=== PATIENT | female | born 1955 | race Hispanic/Latino ===

== ENCOUNTER 2020-09-15 01:19 | Emergency (ER) | payer SELFPAY ==
--- NOTE | 2020-09-15 03:51 | XRay Report ---
CHEST 1 VIEW INDICATION: Chest Pain. COMPARISON: None FINDINGS: SUPPORT DEVICES: None. HEART: Within normal limits. LUNGS/PLEURA: No acute air space or interstitial disease. ADDITIONAL FINDINGS: None. IMPRESSION: 1. No acute findings. Signer Name: Christiano Fontana MD Signed: 09/15/2020 3:47 AM Workstation Name: [id number]
[2020-09-15 04:49] LABS: Basophils # (Auto) 0.1 K/mm3 (0.0-0.1); Basophils % (Auto) 0.9 % (0.0-1.8); Eosinophils # (Auto) 0.4 K/mm3 (0.0-0.4); Eosinophils % (Auto) 5.8 % (0.0-4.3); Hematocrit 38.9 % (30.3-42.9); Hemoglobin 13.1 gm/dl (10.1-14.3); Lymphocytes # (Auto) 2.7 K/mm3 (1.2-5.4); Lymphocytes % (Auto) 41.5 % (13.4-35.0); Mean Corpuscular HGB Conc 34 % (30-34); Mean Corpuscular Volume 89 fl (79-97); Monocytes # (Auto) 0.5 K/mm3 (0.0-0.8); Platelet Count 220 K/mm3 (140-440); Red Blood Count 4.37 M/mm3 (3.65-5.03); Red Cell Distribution Width 13.7 % (13.2-15.2)
[2020-09-15 05:09] LABS: BUN/Creatinine Ratio 24; Blood Urea Nitrogen 24 mg/dL (7-17); Calcium 9.4 mg/dL (8.4-10.2); Hemolysis Index 11
== END 2020-09-15 06:30 | disposition left against medical advice (07) ==
LOC: ED 01:19
DX: R07.89 Other chest pain (principal); Z53.21 Procedure and treatment not carried out due to patient leaving prior to being seen by health care provider
CPT/HCPCS: 36415; 71045; 80048; 84484; 85025; 93005

== ENCOUNTER 2021-08-15 01:58 | Emergency (ER) | payer SELFPAY ==
[2021-08-15 02:21] VITALS: BP 148/91
[2021-08-15] MEDS ORDERED: ASPIRIN 325 MG TAB PO ONE (02:25)
--- NOTE | 2021-08-15 03:00 | XRay Report ---
XR chest routine 2V INDICATION / CLINICAL INFORMATION: CHESTPAIN. COMPARISON: 09/15/2020 FINDINGS: SUPPORT DEVICES: None. HEART /PULMONARY VASCULATURE: No significant abnormality. LUNGS / PLEURA: No significant pulmonary or pleural abnormality. No pneumothorax. ADDITIONAL FINDINGS: No significant additional findings. IMPRESSION: 1. No acute findings. Signer Name: Leroy Blackwell MD Signed: 08/15/2021 2:55 AM Workstation Name: [id number]
[2021-08-15 03:34] LABS: Alanine Aminotransferase 22 units/L (7-56); Albumin 4.3 g/dL (3.9-5); BUN/Creatinine Ratio 21; Blood Urea Nitrogen 21 mg/dL (7-17); Calcium 9.4 mg/dL (8.4-10.2); Hemolysis Index 3
[2021-08-15 03:49] LABS: Basophils # (Auto) 0.1 K/mm3 (0.0-0.1); Basophils % (Auto) 1.2 % (0.0-1.8); Eosinophils # (Auto) 0.4 K/mm3 (0.0-0.4); Eosinophils % (Auto) 6.9 % (0.0-4.3); Hematocrit 38.7 % (30.3-42.9); Hemoglobin 12.6 gm/dl (10.1-14.3); Lymphocytes # (Auto) 2.3 K/mm3 (1.2-5.4); Mean Corpuscular HGB Conc 33 % (30-34); Mean Corpuscular Volume 91 fl (79-97); Monocytes # (Auto) 0.5 K/mm3 (0.0-0.8); Monocytes % (Auto) 7.4 % (0.0-7.3); Platelet Count 196 K/mm3 (140-440); Red Blood Count 4.28 M/mm3 (3.65-5.03); Red Cell Distribution Width 13.2 % (13.2-15.2)
--- NOTE | 2021-08-15 04:00 | Emergency Department Report ---
ED Extremity Problem HPI - General Chief complaint: Chest Pain Stated complaint: LEFT ARM PAIN Time Seen by Provider: 08/15/21 02:56 Source: patient Mode of arrival: Ambulatory Limitations: No Limitations - History of Present Illness Initial comments: Patient is 66-year-old female with past medical history of hypertension and arthritis who is presenting with left arm pain. She states she has pain in the left shoulder and left arm. Is worse with movement better with rest. She got concerned this evening because for the last several hours when she moves she feels pulling sensation in her left side of her chest. Patient has no shortness of breath no exertional component to the pain. No pleurisy. Denies cough cold congestion fevers chills nausea vomiting or diarrhea. - Related Data Previous Rx's Medication Instructions Recorded Last Taken Type methOCARBAMOL [Robaxin TAB] 500 mg PO Q6H PRN #14 tablet 08/15/21 Unknown Rx Allergies Allergy/AdvReac Type Severity Reaction Status Date / Time No Known Allergies Allergy Verified 08/15/21 02:57 ED Review of Systems ROS: Stated complaint: LEFT ARM PAIN Other details as noted in HPI Comment: All other systems reviewed and negative ED Past Medical Hx - Past Medical History Previous Medical History?: Yes Hx Hypertension: Yes Additional medical history: High Cholesterol, Heart Aneurysm - Surgical History Past Surgical History?: Yes Hx Cholecystectomy: Yes Additional Surgical History: Hysterectomy - Social History Smoking Status: Never Smoker Substance Use Type: None - Medications Home Medications: Home Medications Medication Instructions Recorded Confirmed Last Taken Type methOCARBAMOL [Robaxin TAB] 500 mg PO Q6H PRN #14 tablet 08/15/21 Unknown Rx ED Physical Exam - General Limitations: No Limitations General appearance: alert, in no apparent distress - Head Head exam: Present: atraumatic, normocephalic - Eye Eye exam: Present: normal appearance, PERRL, EOMI - ENT ENT exam: Present: mucous membranes moist - Neck Neck exam: Present: normal inspection - Respiratory Respiratory exam: Present: normal lung sounds bilaterally. Absent: respiratory distress, wheezes, rales, rhonchi, stridor - Cardiovascular Cardiovascular Exam: Present: regular rate, normal rhythm. Absent: systolic murmur, diastolic murmur, rubs, gallop - GI/Abdominal GI/Abdominal exam: Present: soft, normal bowel sounds. Absent: distended, tenderness, guarding, rebound - Extremities Exam Extremities exam: Present: normal inspection - Back Exam Back exam: Present: normal inspection - Neurological Exam Neurological exam: Present: alert, oriented X3 - Psychiatric Psychiatric exam: Present: normal affect, normal mood - Skin Skin exam: Present: warm, dry, intact, normal color. Absent: rash ED Course Vital Signs 08/15/21 02:09 Temperature 98.0 F Pulse Rate 59 L Respiratory 16 Rate Blood Pressure 148/91 O2 Sat by Pulse 97 Oximetry ED Medical Decision Making - Lab Data Result diagrams: 08/15/21 02:50 08/15/21 02:50 Lab Results 08/15/21 08/15/21 Range/Units 02:50 02:50 WBC 6.2 (4.5-11.0) K/mm3 RBC 4.28 (3.65-5.03) M/mm3 Hgb 12.6 (10.1-14.3) gm/dl Hct 38.7 (30.3-42.9) % MCV 91 (79-97) fl MCH 29 (28-32) pg MCHC 33 (30-34) % RDW 13.2 (13.2-15.2) % Plt Count 196 (140-440) K/mm3 Lymph % (Auto) 37.0 H (13.4-35.0) % Slope % (Auto) 7.4 H (0.0-7.3) % Eos % (Auto) 6.9 H (0.0-4.3) % Baso % (Auto) 1.2 (0.0-1.8) % Lymph # (Auto) 2.3 (1.2-5.4) K/mm3 Slope # (Auto) 0.5 (0.0-0.8) K/mm3 Eos # (Auto) 0.4 (0.0-0.4) K/mm3 Baso # (Auto) 0.1 (0.0-0.1) K/mm3 Seg Neutrophils % 47.5 (40.0-70.0) % Seg Neutrophils # 2.9 (1.8-7.7) K/mm3 Sodium 144 (137-145) mmol/L Potassium 3.7 (3.6-5.0) mmol/L Chloride 105.6 (98-107) mmol/L Carbon Dioxide 25 (22-30) mmol/L Anion Gap 17 mmol/L BUN 21 H (7-17) mg/dL Creatinine 1.0 (0.6-1.2) mg/dL Estimated GFR 56 ml/min BUN/Creatinine Ratio 21 % Glucose 110 H (65-100) mg/dL Calcium 9.4 (8.4-10.2) mg/dL Total Bilirubin 0.60 (0.1-1.2) mg/dL AST 28 (5-40) units/L ALT 22 (7-56) units/L Alkaline Phosphatase 48 (35-129) units/L Troponin T < 0.010 (0.00-0.029) ng/mL Total Protein 6.4 (6.3-8.2) g/dL Albumin 4.3 (3.9-5) g/dL Albumin/Globulin Ratio 2.0 % - EKG Data -: EKG Interpreted by [facility] EKG shows normal: sinus rhythm, axis, intervals, QRS complexes, ST-T waves Rate: normal - Radiology Data XR chest routine 2V INDICATION / CLINICAL INFORMATION: CHESTPAIN. COMPARISON: 09/15/2020 FINDINGS: SUPPORT DEVICES: None. HEART /PULMONARY VASCULATURE: No significant abnormality. LUNGS / PLEURA: No significant pulmonary or pleural abnormality. No pneumothorax. ADDITIONAL FINDINGS: No significant additional findings. IMPRESSION: 1. No acute findings. Signer Name: Leroy Blackwell MD Signed: 08/15/2021 2:55 AM Workstation Name: [id number] - Medical Decision Making Patient's pain likely musculoskeletal. Patient be discharged home with medication for symptomatic relief. Critical care attestation.: If time is entered above; I have spent that time in minutes in the direct care of this critically ill patient, excluding procedure time. ED Disposition Clinical Impression: Arthralgia, Chest pain, atypical Disposition: 01 HOME / SELF CARE / HOMELESS Is pt being admited?: No Does the pt Need Aspirin: No Condition: Stable Instructions: Nonspecific Chest Pain, Adult, Musculoskeletal Pain Additional Instructions: Please follow-up with your primary care physician as needed Time of Disposition: 03:59
--- NOTE | 2021-08-15 13:27 | Electrocardiograph Report ---
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
== END 2021-08-15 04:40 | disposition home or self-care (01) ==
LOC: ED 01:58
DX: R07.89 Other chest pain (principal); M25.512 Pain in left shoulder; I10 Essential (primary) hypertension; E78.5 Hyperlipidemia, unspecified
CPT/HCPCS: 36415; 71046; 80053; 84484; 85025; 93005; 99284

== ENCOUNTER 2021-11-09 04:18 | Emergency (ER) | payer SELFPAY ==
[2021-11-09] MEDS ORDERED: NITROGLYCERIN 0.4 MG TAB SUBL SL ONE (05:02)
[2021-11-09] MEDS ORDERED: SODIUM CHLORIDE 0.9% 1000 ML 1,000 ML IV ONE (05:02)
[2021-11-09] MEDS ORDERED: ASPIRIN 81 MG TAB CHEW PO ONE (05:02)
--- NOTE | 2021-11-09 05:11 | Emergency Department Report ---
ED General Adult HPI - General Chief complaint: Chest Pain Stated complaint: CHEST PAIN Time Seen by Provider: 11/09/21 05:02 Source: patient Mode of arrival: Ambulatory Limitations: Physical Limitation - History of Present Illness Initial comments: Patient presents secondary to chest discomfort. She states that she was awoken at about 2 or 2:30 AM from sleep. She noticed some funny feeling in her chest described as pain. She states it is an aching pain. She also noticed a funny feeling in her left neck and states that her left arm was getting numb. She knew that something was not right. She tried to lie down to go back to sleep, but she was too upset about having this discomfort. She was too worried about what this might be. Because of that, she came here for evaluation. She states that her symptoms are not specifically pleuritic. They are not exertional. They are not positional. She is never had symptoms like this before. She was told that she has "an aneurysm on her heart." She states that she was told that she should always get checked out. She has never had a heart attack. - Related Data Previous Rx's Medication Instructions Recorded Last Taken Type methOCARBAMOL [Robaxin TAB] 500 mg PO Q6H PRN #14 tablet 08/15/21 Unknown Rx Allergies Allergy/AdvReac Type Severity Reaction Status Date / Time No Known Allergies Allergy Verified 08/15/21 02:57 ED Review of Systems ROS: Stated complaint: CHEST PAIN Other details as noted in HPI Comment: All other systems reviewed and negative Constitutional: denies: fever Eyes: denies: vision change ENT: denies: throat pain Respiratory: denies: cough Cardiovascular: as per HPI, chest pain Endocrine: denies: unexplained weight loss Gastrointestinal: denies: vomiting Genitourinary: denies: dysuria Musculoskeletal: denies: back pain Skin: denies: rash Neurological: denies: headache Hematological/Lymphatic: denies: easy bruising ED Past Medical Hx - Past Medical History Hx Hypertension: Yes Additional medical history: High Cholesterol, Heart Aneurysm - Surgical History Hx Cholecystectomy: Yes Additional Surgical History: Hysterectomy - Family History Family history: hypertension - Social History Smoking Status: Never Smoker - Medications Home Medications: Home Medications Medication Instructions Recorded Confirmed Last Taken Type methOCARBAMOL [Robaxin TAB] 500 mg PO Q6H PRN #14 tablet 08/15/21 Unknown Rx ED Physical Exam - General Limitations: No Limitations, Other (Pulse ox noted and normal) General appearance: alert, in no apparent distress - Head Head exam: Present: atraumatic, normocephalic - Eye Eye exam: Present: normal appearance, PERRL, EOMI - ENT ENT exam: Present: normal orophraynx, normal external ear exam - Neck Neck exam: Present: normal inspection. Absent: tenderness, meningismus - Respiratory Respiratory exam: Present: normal lung sounds bilaterally. Absent: respiratory distress - Cardiovascular Cardiovascular Exam: Present: regular rate, normal rhythm - GI/Abdominal GI/Abdominal exam: Present: soft. Absent: distended - Extremities Exam Extremities exam: Present: normal capillary refill. Absent: pedal edema, calf tenderness - Back Exam Back exam: Absent: CVA tenderness (R), CVA tenderness (L) - Neurological Exam Neurological exam: Present: alert, oriented X3, CN II-XII intact, normal gait. Absent: motor sensory deficit - Psychiatric Psychiatric exam: Present: normal affect, normal mood - Skin Skin exam: Present: warm, dry ED Course Vital Signs 11/09/21 11/09/21 11/09/21 04:30 05:44 05:45 Temperature 98.4 F Pulse Rate 69 62 Respiratory 20 16 Rate Blood Pressure 152/96 Blood Pressure 163/82 [Right] O2 Sat by Pulse 98 98 98 Oximetry - Reevaluation(s) Reevaluation #1: 11/09/21 05:19 EKG was noted. IV labs were ordered. Old records reviewed. Reevaluation #2: 11/09/21 05:57 Labs are noted. Heart score is 4. Based on her presentation, I believe a second troponin would be appropriate. At the second troponin is negative, patient will be discharged. Timed troponin orders have been entered. Care was signed out to the next provider. ED Medical Decision Making - Lab Data Result diagrams: 11/09/21 05:10 11/09/21 05:10 Onset: Normal sinus rhythm without ectopy per monitor observe 10 seconds. - EKG Data -: EKG Interpreted by Me - EKG Data 11/09/21 05:19 0453-EKG shows normal sinus rhythm at 66. Intervals are normal including a QRS of 89 and a QT corrected of 4 0 44. Patient has no ST elevation to suggest infarct. There is no ST depression suggestive of ischemia. Patient has T wave inversion in V1 and V2. There is T wave flattening in lead III. There is no change when compared to an EKG from August 16.. 11/09/21 05:20 - Radiology Data Radiology results: report reviewed - Medical Decision Making Patient presents with chest pain that does not seem to be cardiac in nature. However it has been relatively short duration. Her heart score is 4. We will obtain a second troponin at 3 hours. If this is normal, I do believe that the patient could be discharged home safely. There was no radiographic evidence of pneumonia or pneumothorax. She does not have a wide mediastinum suggestive of aortic dissection. She does not have risk factor for PE. Critical Care Time: No Critical care attestation.: If time is entered above; I have spent that time in minutes in the direct care of this critically ill patient, excluding procedure time. ED Disposition Clinical Impression: Substernal chest pain Disposition: 30 STILL A PATIENT Is pt being admited?: No Condition: Stable Instructions: Nonspecific Chest Pain, Adult Additional Instructions: Drink plenty water. Return for problems. Follow-up with your regular doctor for recheck and further management. Follow-up with cardiology as referred if you need a clinic business manager. Referrals: PRIMARY CARE, [Referring] - 3-5 Days MELODY DEL VALLE MD [Staff Physician] - 3-5 Days NA ESCALANTE MD [Staff Physician] - 3-5 Days
[2021-11-09 05:30] LABS: Basophils % (Auto) 0.4 % (0.0-1.8); Eosinophils # (Auto) 0.4 K/mm3 (0.0-0.4); Eosinophils % (Auto) 3.1 % (0.0-4.3); Hematocrit 38.9 % (30.3-42.9); Hemoglobin 12.7 gm/dl (10.1-14.3); Lymphocytes # (Auto) 1.6 K/mm3 (1.2-5.4); Lymphocytes % (Auto) 14.1 % (13.4-35.0); Mean Corpuscular HGB Conc 33 % (30-34); Mean Corpuscular Volume 90 fl (79-97); Monocytes # (Auto) 0.7 K/mm3 (0.0-0.8); Platelet Count 211 K/mm3 (140-440); Red Blood Count 4.31 M/mm3 (3.65-5.03); Red Cell Distribution Width 13.7 % (13.2-15.2)
[2021-11-09 05:43] LABS: BUN/Creatinine Ratio 25; Blood Urea Nitrogen 25 mg/dL (7-17); Hemolysis Index 5
--- NOTE | 2021-11-09 05:50 | XRay Report ---
CHEST 1 VIEW INDICATION / CLINICAL INFORMATION: cp sinc 2:00am. COMPARISON: None available. FINDINGS: SUPPORT DEVICES: None. HEART / MEDIASTINUM: No significant abnormality. LUNGS / PLEURA: No significant pulmonary or pleural abnormality. No pneumothorax. ADDITIONAL FINDINGS: No significant additional findings. IMPRESSION: 1. No active cardiopulmonary disease. Signer Name: Azael Hills II, MD Signed: 11/09/2021 5:45 AM Workstation Name: [id number]
[2021-11-09 09:19] VITALS: BP 128/78
--- NOTE | 2021-11-10 13:18 | Electrocardiograph Report ---
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
--- NOTE | 2021-11-10 13:25 | Electrocardiograph Report ---
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
== END 2021-11-09 09:20 | disposition still patient (30) ==
LOC: ED 04:18
DX: R07.89 Other chest pain (principal); I10 Essential (primary) hypertension
CPT/HCPCS: 36415; 71045; 80048; 84484; 85025; 93005; 93010; 96360; 99284; J7030; Q0162

== ENCOUNTER 2021-12-13 15:08 | Emergency (ER) | payer SELFPAY ==
[2021-12-13] MEDS ORDERED: ACETAMINOPHEN 500 MG TAB PO ONE (16:17)
[2021-12-13] MEDS ORDERED: IBUPROFEN 800 MG TAB ONE (18:56)
[2021-12-13] MEDS ORDERED: ACETAMINOPHEN 500 MG TAB ONE (18:59)
--- NOTE | 2021-12-13 19:07 | XRay Report ---
Right elbow 3 views INDICATION: Right elbow pain following fall IMPRESSION: Mild degenerative changes of the elbow are present without significant elbow effusion. No fracture is identified. Signer Name: Carlos Juarez MD Signed: 12/13/2021 7:02 PM Workstation Name: [id number]
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
[2021-12-13 19:54] VITALS: BP 178/94
== END 2021-12-13 19:58 | disposition home or self-care (01) ==
LOC: ED 15:08
DX: S53.491A Other sprain of right elbow, initial encounter (principal); S00.83XA Contusion of other part of head, initial encounter; S00.03XA Contusion of scalp, initial encounter; I10 Essential (primary) hypertension; E78.00 Pure hypercholesterolemia, unspecified; Z90.710 Acquired absence of both cervix and uterus; Z79.899 Other long term (current) drug therapy; W10.8XXA Fall (on) (from) other stairs and steps, initial encounter; Y93.89 Activity, other specified; Y92.89 Other specified places as the place of occurrence of the external cause; Y99.8 Other external cause status
CPT/HCPCS: 99283